=== PATIENT | male | born 1935 | race Caucasian/White ===

== ENCOUNTER 2021-09-07 21:22 | Inpatient (IN) | payer MEDICARE ==
[2021-09-07] MEDS ORDERED: Apixaban 2.5 MG TAB PO SCH (23:00)
[2021-09-07] MEDS ORDERED: Docusate Sodium 100 MG/10 ML UDCUP PO SCH (23:00)
[2021-09-07] MEDS ORDERED: Finasteride 5 MG TAB PO SCH (23:15)
[2021-09-08 01:39] LABS: SARS-CoV-2 NAA Rapid Test Not Detected (NotDetected)
[2021-09-08] MEDS: Levothyroxine Sodium 75 MCG TAB PO SCH (05:53)
[2021-09-08 06:29] LABS: ALT (SGPT) 12 U/L (8-55); AST (SGOT) 19 U/L (5-34); Alkaline Phosphatase 107 U/L (40-110); Anion Gap 11 mmol/L (10-20); BUN (Urea Nitrogen) 9 mg/dL (8.4-25.7); Bilirubin, Total 0.9 mg/dL (0.2-1.2); Calc. Creatinine Clearance 72 mL/min (70-130); Calcium 9.3 mg/dL (7.8-10.44); Carbon Dioxide 26 mmol/L (23-31); Chloride 96 mmol/L (98-107); Globulin 2.7 g/dL (2.4-3.5); Glucose 87 mg/dL (83-110); Potassium 3.9 mmol/L (3.5-5.1); Protein, Total 5.7 g/dL (5.8-8.1); Sodium 129 mmol/L (136-145)
[2021-09-08] MEDS ORDERED: Promethazine HCl 25 MG SUPP PR PRN (07:03)
[2021-09-08] MEDS ORDERED: Artificial Tear Sol 15 ML BOT EA EYE PRN (07:03)
[2021-09-08] MEDS ORDERED: Acetaminophen 650 MG Suppository PR PRN (07:03)
[2021-09-08] MEDS ORDERED: Loperamide HCl 2 MG CAP PO PRN ×2 (07:03)
[2021-09-08] MEDS ORDERED: Acetaminophen 325 MG TAB PO PRN (07:03)
[2021-09-08] MEDS ORDERED: cloNIDine 0.1 MG TAB PO PRN (07:03)
[2021-09-08] MEDS ORDERED: Cepastat Lozenges 1 LOZ PO PRN (07:03)
[2021-09-08] MEDS ORDERED: Calcium Carbonate 500 MG ChewTAB PO PRN (07:03)
[2021-09-08 08:04] LABS: Hemoglobin 10.9 g/dL (14.0-18.0); Mean Corpuscular HGB CONC 31.9 g/dL (32.0-36.0); Mean Corpuscular Volume 84.9 fL (78.0-98.0); Mean Platelet Volume 8.8 fL (7.4-10.4); Platelet Count 110 thou/uL (130-400); RBC Distribution Width 17.6 % (11.5-14.5); Red Blood Cell (RBC) Count 4.02 mill/uL (4.70-6.10); White Blood Cell (WBC) Count 28.7 thou/uL (4.8-10.8)
[2021-09-08 08:06] LABS: Anisocytosis SLIGHT = 6-15 cells (100X) (0-5/hpf); Band 8 % (5-11); Hypochromia SLIGHT = 6-15 cells (100X) (0-5/hpf); Lymphocytes 9 % (21-51); MDiff Complete? YES; Monocytes 4 % (0-10); Neutrophil 79 % (42-75); Platelet Morphology Comment Appears Decreased
[2021-09-08] MEDS ORDERED: Finasteride 5 MG TAB PO SCH (09:00)
[2021-09-08] MEDS ORDERED: Digoxin 0.125 MG TAB PO SCH (09:00)
[2021-09-08] MEDS: Ascorbic Acid 500 mg Chewable Tablet PO SCH (09:31)
[2021-09-08] MEDS: Famotidine 20 MG TAB PO SCH (09:32)
[2021-09-08] MEDS: Cholecalciferol 1,000 UNITS (25 MCG) TAB PO SCH (09:32)
[2021-09-08] MEDS: Hydroxyurea 500 MG CAP PO SCH (09:32)
[2021-09-08] MEDS: Apixaban 2.5 MG TAB PO SCH ×2 (09:32→21:51)
[2021-09-08] MEDS: Loratadine 10 MG TAB PO SCH (09:32)
[2021-09-08] MEDS: Docusate Sodium 100 MG/10 ML UDCUP PO SCH ×2 (09:35→21:50)
[2021-09-08] MEDS: Famotidine/PF 20 mg/2ml Vial SLOW IVP SCH ×2 (09:42→23:11)
[2021-09-08] MEDS: Digoxin 0.125 MG TAB PO SCH (17:16)
[2021-09-08] MEDS: Finasteride 5 MG TAB PO SCH (21:51)
[2021-09-09] MEDS: Levothyroxine Sodium 75 MCG TAB PO SCH (05:37)
[2021-09-09 06:37] LABS: Anion Gap 11 mmol/L (10-20); BUN (Urea Nitrogen) 8 mg/dL (8.4-25.7); Calc. Creatinine Clearance 79 mL/min (70-130); Calcium 9.5 mg/dL (7.8-10.44); Carbon Dioxide 26 mmol/L (23-31); Chloride 101 mmol/L (98-107); Glucose 86 mg/dL (83-110); Potassium 3.8 mmol/L (3.5-5.1); Sodium 134 mmol/L (136-145)
[2021-09-09 06:39] LABS: Platelet Count 111 thou/uL (130-400)
[2021-09-09] MEDS: Docusate Sodium 100 MG/10 ML UDCUP PO SCH ×2 (08:45→21:40)
[2021-09-09] MEDS: Cholecalciferol 1,000 UNITS (25 MCG) TAB PO SCH (08:46)
[2021-09-09] MEDS: Ascorbic Acid 500 mg Chewable Tablet PO SCH (08:46)
[2021-09-09] MEDS: Famotidine 20 MG TAB PO SCH (08:46)
[2021-09-09] MEDS: Loratadine 10 MG TAB PO SCH (08:47)
[2021-09-09] MEDS: Apixaban 2.5 MG TAB PO SCH ×2 (08:47→21:41)
[2021-09-09] MEDS: Guaifenesin DM 100-10/5 ML UDCUP PO PRN ×2 (15:13→21:48)
[2021-09-09] MEDS: Digoxin 0.125 MG TAB PO SCH (17:20)
[2021-09-09] MEDS: Finasteride 5 MG TAB PO SCH (21:40)
[2021-09-10] MEDS: Levothyroxine Sodium 75 MCG TAB PO SCH (05:58)
[2021-09-10 06:31] LABS: Anion Gap 12 mmol/L (10-20); BUN (Urea Nitrogen) 8 mg/dL (8.4-25.7); Calc. Creatinine Clearance 80 mL/min (70-130); Calcium 9.4 mg/dL (7.8-10.44); Carbon Dioxide 25 mmol/L (23-31); Chloride 100 mmol/L (98-107); Glucose 91 mg/dL (83-110); Sodium 133 mmol/L (136-145)
[2021-09-10] MEDS: Docusate Sodium 100 MG/10 ML UDCUP PO SCH ×2 (08:04→20:17)
[2021-09-10] MEDS: Loratadine 10 MG TAB PO SCH (08:05)
[2021-09-10] MEDS: Famotidine 20 MG TAB PO SCH (08:05)
[2021-09-10] MEDS: Cholecalciferol 1,000 UNITS (25 MCG) TAB PO SCH (08:05)
[2021-09-10] MEDS: Apixaban 2.5 MG TAB PO SCH ×2 (08:05→20:17)
[2021-09-10] MEDS: Ascorbic Acid 500 mg Chewable Tablet PO SCH (08:05)
[2021-09-10] MEDS: Digoxin 0.125 MG TAB PO SCH (17:19)
[2021-09-10] MEDS: Finasteride 5 MG TAB PO SCH (20:16)
[2021-09-11 06:01] LABS: Anion Gap 12 mmol/L (10-20); BUN (Urea Nitrogen) 8 mg/dL (8.4-25.7); Calc. Creatinine Clearance 82 mL/min (70-130); Calcium 9.3 mg/dL (7.8-10.44); Carbon Dioxide 24 mmol/L (23-31); Chloride 97 mmol/L (98-107); Glucose 93 mg/dL (83-110); Potassium 4.1 mmol/L (3.5-5.1); Sodium 129 mmol/L (136-145)
[2021-09-11] MEDS: Levothyroxine Sodium 75 MCG TAB PO SCH (06:32)
[2021-09-11] MEDS: Cholecalciferol 1,000 UNITS (25 MCG) TAB PO SCH (09:32)
[2021-09-11] MEDS: Hydroxyurea 500 MG CAP PO SCH (09:33)
[2021-09-11] MEDS: Docusate Sodium 100 MG/10 ML UDCUP PO SCH ×2 (09:33→21:05)
[2021-09-11] MEDS: Ascorbic Acid 500 mg Chewable Tablet PO SCH (09:33)
[2021-09-11] MEDS: Apixaban 2.5 MG TAB PO SCH ×2 (09:33→21:05)
[2021-09-11] MEDS: Loratadine 10 MG TAB PO SCH (09:33)
[2021-09-11] MEDS: Famotidine 20 MG TAB PO SCH (09:33)
[2021-09-11] MEDS: Digoxin 0.125 MG TAB PO SCH (17:25)
[2021-09-11] MEDS: Finasteride 5 MG TAB PO SCH (21:05)
[2021-09-11] MEDS: Guaifenesin DM 100-10/5 ML UDCUP PO PRN (21:05)
[2021-09-12] MEDS: Levothyroxine Sodium 75 MCG TAB PO SCH (06:11)
[2021-09-12 06:34] LABS: Hemoglobin 10.9 g/dL (14.0-18.0); Platelet Count 97 thou/uL (130-400)
[2021-09-12] MEDS: Ascorbic Acid 500 mg Chewable Tablet PO SCH (09:09)
[2021-09-12] MEDS: Cholecalciferol 1,000 UNITS (25 MCG) TAB PO SCH (09:09)
[2021-09-12] MEDS: Docusate Sodium 100 MG/10 ML UDCUP PO SCH ×2 (09:09→21:43)
[2021-09-12] MEDS: Loratadine 10 MG TAB PO SCH (09:09)
[2021-09-12] MEDS: Famotidine 20 MG TAB PO SCH (09:09)
[2021-09-12] MEDS: Apixaban 2.5 MG TAB PO SCH ×2 (09:09→21:43)
[2021-09-12] MEDS: Digoxin 0.125 MG TAB PO SCH (17:31)
[2021-09-12] MEDS: Finasteride 5 MG TAB PO SCH (21:43)
[2021-09-13] MEDS: Senokot S 8.6-50 MG TAB PO PRN (06:05)
[2021-09-13] MEDS: Levothyroxine Sodium 75 MCG TAB PO SCH (06:05)
[2021-09-13 06:51] LABS: Anion Gap 12 mmol/L (10-20); BUN (Urea Nitrogen) 9 mg/dL (8.4-25.7); Calc. Creatinine Clearance 76 mL/min (70-130); Calcium 9.4 mg/dL (7.8-10.44); Carbon Dioxide 26 mmol/L (23-31); Chloride 93 mmol/L (98-107); Glucose 90 mg/dL (83-110); Sodium 127 mmol/L (136-145)
[2021-09-13 07:19] LABS: #Basophils 0.7 thou/uL (0.0-0.2); #Eosinphils 0.7 thou/uL (0.0-0.7); #Lymphocytes 0.9 thou/uL (1.20-3.40); #Monocytes 1.5 thou/uL (0.11-0.59); #Neutrophils 20.3 thou/uL (1.40-6.50); %Basophils 3.1 % (0.0-1.0); %Lymphocytes 3.6 % (21.0-51.0); %Monocytes 6.2 % (0.0-10.0); %Neutrophils 84.1 % (42.0-75.0); Hemoglobin 10.8 g/dL (14.0-18.0); Mean Corpuscular HGB CONC 30.6 g/dL (32.0-36.0); Mean Corpuscular Hemoglobin 26.5 pg (27.0-31.0); Mean Corpuscular Volume 86.9 fL (78.0-98.0); Mean Platelet Volume 7.7 fL (7.4-10.4); Platelet Count 98 thou/uL (130-400); Red Blood Cell (RBC) Count 4.08 mill/uL (4.70-6.10); White Blood Cell (WBC) Count 24.1 thou/uL (4.8-10.8)
[2021-09-13] MEDS: Famotidine 20 MG TAB PO SCH (08:27)
[2021-09-13] MEDS: Cholecalciferol 1,000 UNITS (25 MCG) TAB PO SCH (08:27)
[2021-09-13] MEDS: Apixaban 2.5 MG TAB PO SCH ×2 (08:27→21:28)
[2021-09-13] MEDS: Loratadine 10 MG TAB PO SCH (08:27)
[2021-09-13] MEDS: Ascorbic Acid 500 mg Chewable Tablet PO SCH (08:27)
[2021-09-13] MEDS: Docusate Sodium 100 MG/10 ML UDCUP PO SCH ×2 (08:28→21:28)
[2021-09-13] MEDS: Hydroxyurea 500 MG CAP PO SCH (08:28)
[2021-09-13] MEDS: Digoxin 0.125 MG TAB PO SCH (17:43)
[2021-09-13] MEDS: Finasteride 5 MG TAB PO SCH (21:28)
[2021-09-14] MEDS: Levothyroxine Sodium 75 MCG TAB PO SCH (05:18)
[2021-09-14 07:33] LABS: Anion Gap 13 mmol/L (10-20); BUN (Urea Nitrogen) 8 mg/dL (8.4-25.7); Calc. Creatinine Clearance 67 mL/min (70-130); Calcium 9.9 mg/dL (7.8-10.44); Carbon Dioxide 26 mmol/L (23-31); Chloride 95 mmol/L (98-107); Glucose 86 mg/dL (83-110); Potassium 4.3 mmol/L (3.5-5.1); Sodium 130 mmol/L (136-145)
[2021-09-14 08:03] LABS: Thyroid Stimulating Hormone 2.2223 uIU/mL (0.35-4.94)
[2021-09-14] MEDS: Ascorbic Acid 500 mg Chewable Tablet PO SCH (08:24)
[2021-09-14] MEDS: Docusate Sodium 100 MG/10 ML UDCUP PO SCH ×3 (08:24→21:06)
[2021-09-14] MEDS: Sodium Chloride 1 GM TAB PO SCH (08:24)
[2021-09-14] MEDS: Famotidine 20 MG TAB PO SCH (08:24)
[2021-09-14] MEDS: Cholecalciferol 1,000 UNITS (25 MCG) TAB PO SCH (08:24)
[2021-09-14] MEDS: Apixaban 2.5 MG TAB PO SCH ×2 (08:24→21:06)
[2021-09-14] MEDS: Loratadine 10 MG TAB PO SCH (08:24)
[2021-09-14 11:54] LABS: Free T4 (Free Thyroxine) 1.33 ng/dL (0.70-1.48)
[2021-09-14] MEDS: Digoxin 0.125 MG TAB PO SCH (16:40)
[2021-09-14] MEDS: Finasteride 5 MG TAB PO SCH (21:06)
[2021-09-15] MEDS: Levothyroxine Sodium 75 MCG TAB PO SCH (05:26)
[2021-09-15 05:56] LABS: Hemoglobin 10.9 g/dL (14.0-18.0)
[2021-09-15 05:57] LABS: Platelet Count 96 thou/uL (130-400)
[2021-09-15] MEDS: Cholecalciferol 1,000 UNITS (25 MCG) TAB PO SCH (08:28)
[2021-09-15] MEDS: Sodium Chloride 1 GM TAB PO SCH (08:29)
[2021-09-15] MEDS: Apixaban 2.5 MG TAB PO SCH ×2 (08:29→20:23)
[2021-09-15] MEDS: Hydroxyurea 500 MG CAP PO SCH (08:29)
[2021-09-15] MEDS: Docusate Sodium 100 MG/10 ML UDCUP PO SCH ×2 (08:29→20:23)
[2021-09-15] MEDS: Ascorbic Acid 500 mg Chewable Tablet PO SCH (08:29)
[2021-09-15] MEDS: Loratadine 10 MG TAB PO SCH ×2 (08:31→08:32)
[2021-09-15] MEDS: Famotidine 20 MG TAB PO SCH (08:33)
[2021-09-15 16:39] LABS: SARS-CoV-2 PCR by NAA Not Detected (NotDetected)
[2021-09-15] MEDS: Digoxin 0.125 MG TAB PO SCH (17:19)
[2021-09-15] MEDS: Finasteride 5 MG TAB PO SCH (20:12)
[2021-09-15] MEDS: Guaifenesin DM 100-10/5 ML UDCUP PO PRN (20:23)
[2021-09-16] MEDS: Levothyroxine Sodium 75 MCG TAB PO SCH (05:19)
[2021-09-16 07:37] LABS: Anion Gap 11 mmol/L (10-20); BUN (Urea Nitrogen) 7 mg/dL (8.4-25.7); Calc. Creatinine Clearance 85 mL/min (70-130); Calcium 9.3 mg/dL (7.8-10.44); Carbon Dioxide 26 mmol/L (23-31); Chloride 95 mmol/L (98-107); Glucose 89 mg/dL (83-110); Potassium 4.1 mmol/L (3.5-5.1); Sodium 128 mmol/L (136-145)
[2021-09-16] MEDS: Loratadine 10 MG TAB PO SCH (08:31)
[2021-09-16] MEDS: Famotidine 20 MG TAB PO SCH (08:31)
[2021-09-16] MEDS: Ascorbic Acid 500 mg Chewable Tablet PO SCH (08:31)
[2021-09-16] MEDS: Sodium Chloride 1 GM TAB PO SCH (08:31)
[2021-09-16] MEDS: Cholecalciferol 1,000 UNITS (25 MCG) TAB PO SCH (08:31)
[2021-09-16] MEDS: Apixaban 2.5 MG TAB PO SCH ×2 (08:31→20:26)
[2021-09-16] MEDS: Docusate Sodium 100 MG/10 ML UDCUP PO SCH ×2 (08:32→20:26)
[2021-09-16] MEDS: Digoxin 0.125 MG TAB PO SCH (17:30)
[2021-09-16] MEDS: Finasteride 5 MG TAB PO SCH (20:26)
[2021-09-17] MEDS: Levothyroxine Sodium 75 MCG TAB PO SCH (05:08)
[2021-09-17 08:05] LABS: Anion Gap 12 mmol/L (10-20); BUN (Urea Nitrogen) 7 mg/dL (8.4-25.7); Calc. Creatinine Clearance 74 mL/min (70-130); Calcium 9.4 mg/dL (7.8-10.44); Carbon Dioxide 27 mmol/L (23-31); Chloride 95 mmol/L (98-107); Glucose 89 mg/dL (83-110); Potassium 4.1 mmol/L (3.5-5.1); Sodium 130 mmol/L (136-145)
[2021-09-17] MEDS: Ascorbic Acid 500 mg Chewable Tablet PO SCH (09:45)
[2021-09-17] MEDS: Sodium Chloride 1 GM TAB PO SCH (09:45)
[2021-09-17] MEDS: Apixaban 2.5 MG TAB PO SCH ×2 (09:45→21:16)
[2021-09-17] MEDS: Famotidine 20 MG TAB PO SCH (09:46)
[2021-09-17] MEDS: Cholecalciferol 1,000 UNITS (25 MCG) TAB PO SCH (09:53)
[2021-09-17] MEDS: Docusate Sodium 100 MG/10 ML UDCUP PO SCH ×2 (09:55→21:16)
[2021-09-17] MEDS ORDERED: Loratadine 10 MG TAB PO SCH (10:00)
[2021-09-17] MEDS: Digoxin 0.125 MG TAB PO SCH (17:40)
[2021-09-17] MEDS: Finasteride 5 MG TAB PO SCH (21:16)
[2021-09-18] MEDS: Levothyroxine Sodium 75 MCG TAB PO SCH (05:11)
[2021-09-18 06:25] LABS: Hemoglobin 11.8 g/dL (14.0-18.0); Platelet Count 98 thou/uL (130-400)
[2021-09-18] MEDS: Ascorbic Acid 500 mg Chewable Tablet PO SCH (08:37)
[2021-09-18] MEDS: Sodium Chloride 1 GM TAB PO SCH (08:38)
[2021-09-18] MEDS: Hydroxyurea 500 MG CAP PO SCH (08:38)
[2021-09-18] MEDS: Cholecalciferol 1,000 UNITS (25 MCG) TAB PO SCH (08:38)
[2021-09-18] MEDS: Docusate Sodium 100 MG/10 ML UDCUP PO SCH ×2 (08:38→20:14)
[2021-09-18] MEDS: Apixaban 2.5 MG TAB PO SCH ×2 (08:38→20:13)
[2021-09-18] MEDS: Famotidine 20 MG TAB PO SCH (08:38)
[2021-09-18] MEDS: Loratadine 10 MG TAB PO SCH (08:38)
[2021-09-18 11:23] LABS: Cardiac Risk 2.8 (Less than 4.5); Cholesterol 93 mg/dl (< 200 Desired); HDL Cholesterol 33 mg/dL (>60 Neg Risk); LDL Cholesterol, Calculated 48 mg/dL; Triglycerides 61 mg/dL (Less than 150)
[2021-09-18] MEDS: Digoxin 0.125 MG TAB PO SCH (17:29)
[2021-09-18] MEDS: Finasteride 5 MG TAB PO SCH (20:14)
[2021-09-19] MEDS: Levothyroxine Sodium 75 MCG TAB PO SCH (05:24)
[2021-09-19 06:24] LABS: Anion Gap 11 mmol/L (10-20); BUN (Urea Nitrogen) 8 mg/dL (8.4-25.7); Calc. Creatinine Clearance 70 mL/min (70-130); Calcium 9.4 mg/dL (7.8-10.44); Carbon Dioxide 27 mmol/L (23-31); Chloride 97 mmol/L (98-107); Glucose 88 mg/dL (83-110); Sodium 131 mmol/L (136-145)
[2021-09-19] MEDS: Ascorbic Acid 500 mg Chewable Tablet PO SCH (08:44)
[2021-09-19] MEDS: Docusate Sodium 100 MG/10 ML UDCUP PO SCH ×2 (08:45→20:43)
[2021-09-19] MEDS: Cholecalciferol 1,000 UNITS (25 MCG) TAB PO SCH (08:45)
[2021-09-19] MEDS: Bisacodyl 5 MG TAB PO PRN (08:46)
[2021-09-19] MEDS: Loratadine 10 MG TAB PO SCH (08:46)
[2021-09-19] MEDS: Famotidine 20 MG TAB PO SCH (08:46)
[2021-09-19] MEDS: Sodium Chloride 1 GM TAB PO SCH (08:46)
[2021-09-19] MEDS: Apixaban 2.5 MG TAB PO SCH ×2 (08:55→20:43)
[2021-09-19] MEDS: Senokot S 8.6-50 MG TAB PO PRN (15:19)
[2021-09-19] MEDS: Digoxin 0.125 MG TAB PO SCH (17:12)
[2021-09-19] MEDS: Bisacodyl 10 MG SUPP PR PRN (17:58)
[2021-09-19] MEDS: Finasteride 5 MG TAB PO SCH (20:43)
[2021-09-20] MEDS: Levothyroxine Sodium 75 MCG TAB PO SCH (05:27)
[2021-09-20] MEDS: Docusate Sodium 100 MG/10 ML UDCUP PO SCH ×2 (08:15→20:53)
[2021-09-20] MEDS: Ascorbic Acid 500 mg Chewable Tablet PO SCH (08:16)
[2021-09-20] MEDS: Cholecalciferol 1,000 UNITS (25 MCG) TAB PO SCH (08:16)
[2021-09-20] MEDS: Sodium Chloride 1 GM TAB PO SCH (08:16)
[2021-09-20] MEDS: Famotidine 20 MG TAB PO SCH (08:16)
[2021-09-20] MEDS: Apixaban 2.5 MG TAB PO SCH ×2 (08:16→20:53)
[2021-09-20] MEDS: Hydroxyurea 500 MG CAP PO SCH (08:16)
[2021-09-20] MEDS: Loratadine 10 MG TAB PO SCH (08:16)
[2021-09-20] MEDS: Digoxin 0.125 MG TAB PO SCH (17:28)
[2021-09-20] MEDS: Finasteride 5 MG TAB PO SCH (20:53)
[2021-09-21] MEDS: Levothyroxine Sodium 75 MCG TAB PO SCH (05:20)
[2021-09-21 06:42] LABS: Anion Gap 11 mmol/L (10-20); BUN (Urea Nitrogen) 15 mg/dL (8.4-25.7); Calc. Creatinine Clearance 74 mL/min (70-130); Calcium 9.9 mg/dL (7.8-10.44); Carbon Dioxide 29 mmol/L (23-31); Chloride 97 mmol/L (98-107); Glucose 88 mg/dL (83-110); Potassium 4.1 mmol/L (3.5-5.1); Sodium 133 mmol/L (136-145)
[2021-09-21] MEDS: Famotidine 20 MG TAB PO SCH (08:35)
[2021-09-21] MEDS: Loratadine 10 MG TAB PO SCH (08:35)
[2021-09-21] MEDS: Sodium Chloride 1 GM TAB PO SCH (08:35)
[2021-09-21] MEDS: Apixaban 2.5 MG TAB PO SCH ×2 (08:35→21:28)
[2021-09-21] MEDS: Docusate Sodium 100 MG/10 ML UDCUP PO SCH ×2 (08:35→21:28)
[2021-09-21] MEDS: Cholecalciferol 1,000 UNITS (25 MCG) TAB PO SCH (08:35)
[2021-09-21] MEDS: Ascorbic Acid 500 mg Chewable Tablet PO SCH (08:35)
[2021-09-21] MEDS: Sodium Chloride 0.65% Nasal 44 ML BOT EA NARE PRN (15:19)
[2021-09-21] MEDS: Digoxin 0.125 MG TAB PO SCH (17:14)
[2021-09-21] MEDS: Finasteride 5 MG TAB PO SCH (21:28)
[2021-09-22] MEDS: Levothyroxine Sodium 75 MCG TAB PO SCH (06:01)
[2021-09-22] MEDS: Famotidine 20 MG TAB PO SCH (08:39)
[2021-09-22] MEDS: Docusate Sodium 100 MG/10 ML UDCUP PO SCH ×2 (08:40→20:38)
[2021-09-22] MEDS: Ascorbic Acid 500 mg Chewable Tablet PO SCH (08:41)
[2021-09-22] MEDS: Cholecalciferol 1,000 UNITS (25 MCG) TAB PO SCH (08:41)
[2021-09-22] MEDS: Hydroxyurea 500 MG CAP PO SCH (08:41)
[2021-09-22] MEDS: Loratadine 10 MG TAB PO SCH (08:41)
[2021-09-22] MEDS: Sodium Chloride 1 GM TAB PO SCH (08:41)
[2021-09-22] MEDS: Apixaban 2.5 MG TAB PO SCH ×2 (08:41→20:38)
[2021-09-22] MEDS: Sodium Chloride 0.65% Nasal 44 ML BOT EA NARE PRN (10:42)
[2021-09-22] MEDS: Digoxin 0.125 MG TAB PO SCH (17:36)
[2021-09-22] MEDS: Finasteride 5 MG TAB PO SCH (20:38)
[2021-09-23] MEDS: Levothyroxine Sodium 75 MCG TAB PO SCH (05:40)
[2021-09-23 07:04] LABS: Anion Gap 13 mmol/L (10-20); BUN (Urea Nitrogen) 8 mg/dL (8.4-25.7); Calc. Creatinine Clearance 78 mL/min (70-130); Calcium 9.7 mg/dL (7.8-10.44); Carbon Dioxide 25 mmol/L (23-31); Chloride 97 mmol/L (98-107); Glucose 90 mg/dL (83-110); Sodium 131 mmol/L (136-145)
[2021-09-23] MEDS: Docusate Sodium 100 MG/10 ML UDCUP PO SCH ×2 (08:01→21:09)
[2021-09-23] MEDS: Apixaban 2.5 MG TAB PO SCH ×2 (08:02→21:08)
[2021-09-23] MEDS: Famotidine 20 MG TAB PO SCH (08:02)
[2021-09-23] MEDS: Loratadine 10 MG TAB PO SCH (08:02)
[2021-09-23] MEDS: Sodium Chloride 1 GM TAB PO SCH (08:03)
[2021-09-23] MEDS: Cholecalciferol 1,000 UNITS (25 MCG) TAB PO SCH (08:03)
[2021-09-23] MEDS: Ascorbic Acid 500 mg Chewable Tablet PO SCH (08:03)
[2021-09-23] MEDS: Sodium Chloride 0.65% Nasal 44 ML BOT EA NARE PRN (15:34)
[2021-09-23] MEDS: Digoxin 0.125 MG TAB PO SCH (17:26)
[2021-09-23] MEDS: Finasteride 5 MG TAB PO SCH (21:08)
[2021-09-24] MEDS: Levothyroxine Sodium 75 MCG TAB PO SCH (05:50)
[2021-09-24 06:34] LABS: Digoxin 0.42 ng/mL (0.8-2.0)
[2021-09-24] MEDS: Docusate Sodium 100 MG/10 ML UDCUP PO SCH ×2 (08:22→20:11)
[2021-09-24] MEDS: Ascorbic Acid 500 mg Chewable Tablet PO SCH (08:22)
[2021-09-24] MEDS: Apixaban 2.5 MG TAB PO SCH ×2 (08:23→20:11)
[2021-09-24] MEDS: Loratadine 10 MG TAB PO SCH (08:23)
[2021-09-24] MEDS: Famotidine 20 MG TAB PO SCH (08:23)
[2021-09-24] MEDS: Sodium Chloride 1 GM TAB PO SCH (08:23)
[2021-09-24] MEDS: Cholecalciferol 1,000 UNITS (25 MCG) TAB PO SCH (08:23)
[2021-09-24] MEDS: Digoxin 0.125 MG TAB PO SCH (17:04)
[2021-09-24] MEDS: Finasteride 5 MG TAB PO SCH (20:11)
[2021-09-24 21:14] LABS: SARS-CoV-2 PCR by NAA Not Detected (NotDetected)
[2021-09-25] MEDS: Levothyroxine Sodium 75 MCG TAB PO SCH (05:28)
[2021-09-25 06:38] LABS: Anion Gap 10 mmol/L (10-20); BUN (Urea Nitrogen) 10 mg/dL (8.4-25.7); Calc. Creatinine Clearance 70 mL/min (70-130); Calcium 9.6 mg/dL (7.8-10.44); Carbon Dioxide 30 mmol/L (23-31); Chloride 98 mmol/L (98-107); Glucose 90 mg/dL (83-110); Potassium 4.1 mmol/L (3.5-5.1); Sodium 134 mmol/L (136-145)
[2021-09-25 07:22] LABS: Hemoglobin 10.6 g/dL (14.0-18.0); Platelet Count 74 thou/uL (130-400)
[2021-09-25] MEDS: Cholecalciferol 1,000 UNITS (25 MCG) TAB PO SCH (08:23)
[2021-09-25] MEDS: Sodium Chloride 1 GM TAB PO SCH (08:23)
[2021-09-25] MEDS: Ascorbic Acid 500 mg Chewable Tablet PO SCH (08:23)
[2021-09-25] MEDS: Docusate Sodium 100 MG/10 ML UDCUP PO SCH ×2 (08:23→20:37)
[2021-09-25] MEDS: Hydroxyurea 500 MG CAP PO SCH (08:24)
[2021-09-25] MEDS: Loratadine 10 MG TAB PO SCH (08:24)
[2021-09-25] MEDS: Apixaban 2.5 MG TAB PO SCH ×2 (08:24→20:37)
[2021-09-25] MEDS: Famotidine 20 MG TAB PO SCH (08:24)
[2021-09-25] MEDS: Digoxin 0.125 MG TAB PO SCH (17:37)
[2021-09-25] MEDS: Finasteride 5 MG TAB PO SCH (20:37)
[2021-09-26] MEDS: Levothyroxine Sodium 75 MCG TAB PO SCH (05:47)
[2021-09-26] MEDS: Docusate Sodium 100 MG/10 ML UDCUP PO SCH ×2 (07:53→20:33)
[2021-09-26] MEDS: Cholecalciferol 1,000 UNITS (25 MCG) TAB PO SCH (07:57)
[2021-09-26] MEDS: Famotidine 20 MG TAB PO SCH (07:57)
[2021-09-26] MEDS: Ascorbic Acid 500 mg Chewable Tablet PO SCH (07:57)
[2021-09-26] MEDS: Loratadine 10 MG TAB PO SCH (07:57)
[2021-09-26] MEDS: Sodium Chloride 1 GM TAB PO SCH (07:58)
[2021-09-26] MEDS: Apixaban 2.5 MG TAB PO SCH ×2 (07:58→20:33)
[2021-09-26] MEDS: Digoxin 0.125 MG TAB PO SCH (16:45)
[2021-09-26] MEDS: Finasteride 5 MG TAB PO SCH (20:33)
[2021-09-27] MEDS: Levothyroxine Sodium 75 MCG TAB PO SCH (06:14)
[2021-09-27 06:16] LABS: Anion Gap 11 mmol/L (10-20); BUN (Urea Nitrogen) 11 mg/dL (8.4-25.7); Calc. Creatinine Clearance 70 mL/min (70-130); Calcium 9.9 mg/dL (7.8-10.44); Carbon Dioxide 28 mmol/L (23-31); Chloride 100 mmol/L (98-107); Glucose 92 mg/dL (83-110); Potassium 4.2 mmol/L (3.5-5.1)
[2021-09-27 06:42] LABS: Sodium 135 mmol/L (136-145)
[2021-09-27] MEDS: Docusate Sodium 100 MG/10 ML UDCUP PO SCH ×2 (08:18→20:30)
[2021-09-27] MEDS: Sodium Chloride 1 GM TAB PO SCH (08:21)
[2021-09-27] MEDS: Famotidine 20 MG TAB PO SCH (08:21)
[2021-09-27] MEDS: Hydroxyurea 500 MG CAP PO SCH (08:21)
[2021-09-27] MEDS: Ascorbic Acid 500 mg Chewable Tablet PO SCH (08:21)
[2021-09-27] MEDS: Apixaban 2.5 MG TAB PO SCH ×2 (08:21→20:32)
[2021-09-27] MEDS: Cholecalciferol 1,000 UNITS (25 MCG) TAB PO SCH (08:21)
[2021-09-27] MEDS: Digoxin 0.125 MG TAB PO SCH (17:05)
[2021-09-27] MEDS: Finasteride 5 MG TAB PO SCH (20:30)
[2021-09-28] MEDS: Levothyroxine Sodium 75 MCG TAB PO SCH (06:00)
[2021-09-28] MEDS: Cholecalciferol 1,000 UNITS (25 MCG) TAB PO SCH (08:07)
[2021-09-28] MEDS: Famotidine 20 MG TAB PO SCH (08:08)
[2021-09-28] MEDS: Sodium Chloride 1 GM TAB PO SCH (08:08)
[2021-09-28] MEDS: Docusate Sodium 100 MG/10 ML UDCUP PO SCH ×2 (08:08→20:03)
[2021-09-28] MEDS: Ascorbic Acid 500 mg Chewable Tablet PO SCH (08:08)
[2021-09-28] MEDS: Apixaban 2.5 MG TAB PO SCH ×2 (08:08→20:03)
[2021-09-28 13:10] LABS: #Basophils 0.5 thou/uL (0.0-0.2); #Lymphocytes 1.3 thou/uL (1.20-3.40); #Monocytes 0.8 thou/uL (0.11-0.59); #Neutrophils 18.9 thou/uL (1.40-6.50); %Basophils 2.3 % (0.0-1.0); %Eosinophils 4.6 % (0.0-10.0); %Lymphocytes 5.9 % (21.0-51.0); %Monocytes 3.6 % (0.0-10.0); %Neutrophils 83.6 % (42.0-75.0); Hemoglobin 11.6 g/dL (14.0-18.0); Mean Corpuscular HGB CONC 29.6 g/dL (32.0-36.0); Mean Corpuscular Hemoglobin 26.6 pg (27.0-31.0); Mean Corpuscular Volume 89.9 fL (78.0-98.0); Mean Platelet Volume 8.1 fL (7.4-10.4); Platelet Count 88 thou/uL (130-400); RBC Distribution Width 18.9 % (11.5-14.5); Red Blood Cell (RBC) Count 4.36 mill/uL (4.70-6.10); White Blood Cell (WBC) Count 22.6 thou/uL (4.8-10.8)
[2021-09-28 13:20] LABS: Anion Gap 11 mmol/L (10-20); BUN (Urea Nitrogen) 9 mg/dL (8.4-25.7); Calc. Creatinine Clearance 70 mL/min (70-130); Calcium 9.7 mg/dL (7.8-10.44); Carbon Dioxide 26 mmol/L (23-31); Chloride 100 mmol/L (98-107); Glucose 155 mg/dL (83-110); Potassium 4.2 mmol/L (3.5-5.1); Sodium 133 mmol/L (136-145)
[2021-09-28] MEDS: Digoxin 0.125 MG TAB PO SCH (17:04)
[2021-09-28] MEDS: Finasteride 5 MG TAB PO SCH (20:03)
[2021-09-29] MEDS: Levothyroxine Sodium 75 MCG TAB PO SCH (05:34)
[2021-09-29] MEDS: Docusate Sodium 100 MG/10 ML UDCUP PO SCH ×2 (08:17→20:18)
[2021-09-29] MEDS: Sodium Chloride 1 GM TAB PO SCH (08:17)
[2021-09-29] MEDS: Cholecalciferol 1,000 UNITS (25 MCG) TAB PO SCH (08:17)
[2021-09-29] MEDS: Ascorbic Acid 500 mg Chewable Tablet PO SCH (08:17)
[2021-09-29] MEDS: Loratadine 10 MG TAB PO SCH (08:17)
[2021-09-29] MEDS: Apixaban 2.5 MG TAB PO SCH ×2 (08:17→20:19)
[2021-09-29] MEDS: Famotidine 20 MG TAB PO SCH (08:17)
[2021-09-29] MEDS: Digoxin 0.125 MG TAB PO SCH (16:59)
[2021-09-29] MEDS: Senokot S 8.6-50 MG TAB PO PRN (17:00)
[2021-09-29] MEDS: Finasteride 5 MG TAB PO SCH (20:19)
[2021-09-30] MEDS: Levothyroxine Sodium 75 MCG TAB PO SCH (04:52)
[2021-09-30 06:57] LABS: Hemoglobin 11.7 g/dL (14.0-18.0); Mean Corpuscular HGB CONC 30.3 g/dL (32.0-36.0); Mean Corpuscular Hemoglobin 26.7 pg (27.0-31.0); Mean Corpuscular Volume 88.3 fL (78.0-98.0); Mean Platelet Volume 8.4 fL (7.4-10.4); Platelet Count 81 thou/uL (130-400); RBC Distribution Width 18.9 % (11.5-14.5); Red Blood Cell (RBC) Count 4.37 mill/uL (4.70-6.10); White Blood Cell (WBC) Count 19.8 thou/uL (4.8-10.8)
[2021-09-30 06:58] LABS: #Basophils 0.5 thou/uL (0.0-0.2); #Eosinphils 0.8 thou/uL (0.0-0.7); #Lymphocytes 1.2 thou/uL (1.20-3.40); #Neutrophils 16.3 thou/uL (1.40-6.50); %Basophils 2.7 % (0.0-1.0); %Eosinophils 4.1 % (0.0-10.0); %Lymphocytes 6.3 % (21.0-51.0); %Neutrophils 81.9 % (42.0-75.0)
[2021-09-30 06:59] LABS: Anion Gap 11 mmol/L (10-20); BUN (Urea Nitrogen) 10 mg/dL (8.4-25.7); Calc. Creatinine Clearance 64 mL/min (70-130); Calcium 9.7 mg/dL (7.8-10.44); Carbon Dioxide 29 mmol/L (23-31); Chloride 100 mmol/L (98-107); Glucose 89 mg/dL (83-110); Potassium 4.1 mmol/L (3.5-5.1); Sodium 136 mmol/L (136-145)
[2021-09-30] MEDS: Cholecalciferol 1,000 UNITS (25 MCG) TAB PO SCH (08:15)
[2021-09-30] MEDS: Ascorbic Acid 500 mg Chewable Tablet PO SCH (08:15)
[2021-09-30] MEDS: Famotidine 20 MG TAB PO SCH (08:15)
[2021-09-30] MEDS: Loratadine 10 MG TAB PO SCH (08:16)
[2021-09-30] MEDS: Docusate Sodium 100 MG/10 ML UDCUP PO SCH ×2 (08:16→20:17)
[2021-09-30] MEDS: Apixaban 2.5 MG TAB PO SCH ×2 (08:16→20:17)
[2021-09-30] MEDS: Sodium Chloride 1 GM TAB PO SCH (08:16)
[2021-09-30 17:17] LABS: Anisocytosis SLIGHT = 6-15 cells (100X) (0-5/hpf); Elliptocytes SLIGHT = 2-5 cells (100X) (0-1/hpf); Hypochromia SLIGHT = 6-15 cells (100X) (0-5/hpf); Ovalocytes SLIGHT = 2-5 cells (100X) (0-1/hpf)
[2021-09-30 17:18] LABS: Basophilic Stippling SLIGHT = 1-2 cells (100X) (None Seen); Polychromasia MODERATE = 3-4 cells (100X) (0-2/hpf)
[2021-09-30 17:19] LABS: Large Platelets SLIGHT; Platelet Morphology Comment Appears Decreased
[2021-09-30] MEDS: Digoxin 0.125 MG TAB PO SCH (17:46)
[2021-09-30] MEDS: Finasteride 5 MG TAB PO SCH (20:17)
[2021-10-01] MEDS: Levothyroxine Sodium 75 MCG TAB PO SCH (05:23)
[2021-10-01] MEDS: Loratadine 10 MG TAB PO SCH (08:36)
[2021-10-01] MEDS: Famotidine 20 MG TAB PO SCH (08:36)
[2021-10-01] MEDS: Ascorbic Acid 500 mg Chewable Tablet PO SCH (08:36)
[2021-10-01] MEDS: Apixaban 2.5 MG TAB PO SCH ×2 (08:36→20:00)
[2021-10-01] MEDS: Sodium Chloride 1 GM TAB PO SCH (08:36)
[2021-10-01] MEDS: Cholecalciferol 1,000 UNITS (25 MCG) TAB PO SCH (08:36)
[2021-10-01] MEDS: Docusate Sodium 100 MG/10 ML UDCUP PO SCH ×2 (08:37→20:00)
[2021-10-01] MEDS: Digoxin 0.125 MG TAB PO SCH (17:08)
[2021-10-01] MEDS: Finasteride 5 MG TAB PO SCH (20:00)
[2021-10-02] MEDS: Levothyroxine Sodium 75 MCG TAB PO SCH (05:16)
[2021-10-02 06:35] LABS: Mean Corpuscular HGB CONC 29.7 g/dL (32.0-36.0); Mean Corpuscular Hemoglobin 26.7 pg (27.0-31.0); Platelet Count 78 thou/uL (130-400); RBC Distribution Width 19.4 % (11.5-14.5)
[2021-10-02 06:36] LABS: #Eosinphils 0.8 thou/uL (0.0-0.7); #Lymphocytes 1.3 thou/uL (1.20-3.40); #Monocytes 0.8 thou/uL (0.11-0.59); #Neutrophils 15.8 thou/uL (1.40-6.50); %Basophils 1.8 % (0.0-1.0); %Eosinophils 4.1 % (0.0-10.0); %Monocytes 4.4 % (0.0-10.0); %Neutrophils 82.8 % (42.0-75.0); Manual Diff?? NO; Mean Platelet Volume 7.3 fL (7.4-10.4)
[2021-10-02 06:37] LABS: #Basophils 0.3 thou/uL (0.0-0.2)
[2021-10-02 06:51] LABS: Sodium 140 mmol/L (136-145)
[2021-10-02 06:56] LABS: Anion Gap 13 mmol/L (10-20); BUN (Urea Nitrogen) 13 mg/dL (8.4-25.7); Calc. Creatinine Clearance 67 mL/min (70-130); Calcium 9.5 mg/dL (7.8-10.44); Chloride 103 mmol/L (98-107); Glucose 87 mg/dL (83-110)
[2021-10-02 07:04] LABS: Carbon Dioxide 28 mmol/L (23-31)
[2021-10-02] MEDS: Apixaban 2.5 MG TAB PO SCH ×2 (08:05→20:00)
[2021-10-02] MEDS: Famotidine 20 MG TAB PO SCH (08:05)
[2021-10-02] MEDS: Sodium Chloride 1 GM TAB PO SCH (08:05)
[2021-10-02] MEDS: Cholecalciferol 1,000 UNITS (25 MCG) TAB PO SCH (08:05)
[2021-10-02] MEDS: Docusate Sodium 100 MG/10 ML UDCUP PO SCH ×2 (08:06→20:00)
[2021-10-02] MEDS: Ascorbic Acid 500 mg Chewable Tablet PO SCH (08:06)
[2021-10-02] MEDS: Loratadine 10 MG TAB PO SCH (08:06)
[2021-10-02 15:45] LABS: SARS-CoV-2 PCR by NAA Not Detected (NotDetected)
[2021-10-02] MEDS: Digoxin 0.125 MG TAB PO SCH (17:26)
[2021-10-02] MEDS: Finasteride 5 MG TAB PO SCH (20:00)
[2021-10-03] MEDS: Levothyroxine Sodium 75 MCG TAB PO SCH (05:41)
[2021-10-03] MEDS: Ascorbic Acid 500 mg Chewable Tablet PO SCH (08:11)
[2021-10-03] MEDS: Apixaban 2.5 MG TAB PO SCH ×2 (08:11→20:30)
[2021-10-03] MEDS: Sodium Chloride 1 GM TAB PO SCH (08:11)
[2021-10-03] MEDS: Docusate Sodium 100 MG/10 ML UDCUP PO SCH ×2 (08:12→20:30)
[2021-10-03] MEDS: Cholecalciferol 1,000 UNITS (25 MCG) TAB PO SCH (08:12)
[2021-10-03] MEDS: Famotidine 20 MG TAB PO SCH (08:12)
[2021-10-03] MEDS: Loratadine 10 MG TAB PO SCH (08:12)
[2021-10-03] MEDS: Digoxin 0.125 MG TAB PO SCH (17:08)
[2021-10-03] MEDS: Finasteride 5 MG TAB PO SCH (20:30)
[2021-10-04] MEDS: Levothyroxine Sodium 75 MCG TAB PO SCH (05:43)
[2021-10-04 06:02] LABS: Hemoglobin 11.1 g/dL (14.0-18.0); Mean Corpuscular HGB CONC 29.7 g/dL (32.0-36.0); Mean Corpuscular Hemoglobin 26.5 pg (27.0-31.0); Mean Corpuscular Volume 89.2 fL (78.0-98.0); Red Blood Cell (RBC) Count 4.18 mill/uL (4.70-6.10); White Blood Cell (WBC) Count 18.1 thou/uL (4.8-10.8)
[2021-10-04 06:03] LABS: #Basophils 0.3 thou/uL (0.0-0.2); #Eosinphils 0.8 thou/uL (0.0-0.7); #Lymphocytes 1.4 thou/uL (1.20-3.40); #Monocytes 0.8 thou/uL (0.11-0.59); #Neutrophils 14.9 thou/uL (1.40-6.50); %Basophils 1.9 % (0.0-1.0); %Eosinophils 4.3 % (0.0-10.0); %Lymphocytes 7.5 % (21.0-51.0); %Monocytes 4.2 % (0.0-10.0); %Neutrophils 82.1 % (42.0-75.0); Manual Diff?? NO; Mean Platelet Volume 8.2 fL (7.4-10.4); Platelet Count 101 thou/uL (130-400); RBC Distribution Width 18.8 % (11.5-14.5)
[2021-10-04 06:31] LABS: Anion Gap 12 mmol/L (10-20); BUN (Urea Nitrogen) 11 mg/dL (8.4-25.7); Calc. Creatinine Clearance 64 mL/min (70-130); Calcium 9.7 mg/dL (7.8-10.44); Carbon Dioxide 27 mmol/L (23-31); Chloride 99 mmol/L (98-107); Glucose 90 mg/dL (83-110); Potassium 3.9 mmol/L (3.5-5.1)
[2021-10-04 06:34] LABS: Sodium 134 mmol/L (136-145)
[2021-10-04] MEDS ORDERED: Loratadine 10 MG TAB PO PRN (08:07)
[2021-10-04] MEDS: Ascorbic Acid 500 mg Chewable Tablet PO SCH (08:32)
[2021-10-04] MEDS: Cholecalciferol 1,000 UNITS (25 MCG) TAB PO SCH (08:32)
[2021-10-04] MEDS: Docusate Sodium 100 MG/10 ML UDCUP PO SCH ×2 (08:32→21:08)
[2021-10-04] MEDS: Sodium Chloride 1 GM TAB PO SCH (08:32)
[2021-10-04] MEDS: Apixaban 2.5 MG TAB PO SCH ×2 (08:32→21:08)
[2021-10-04] MEDS: Famotidine 20 MG TAB PO SCH (08:33)
[2021-10-04] MEDS: Digoxin 0.125 MG TAB PO SCH (17:46)
[2021-10-04] MEDS: Finasteride 5 MG TAB PO SCH (21:08)
[2021-10-05] MEDS: Levothyroxine Sodium 75 MCG TAB PO SCH (05:35)
[2021-10-05] MEDS: Docusate Sodium 100 MG/10 ML UDCUP PO SCH ×2 (08:52→20:37)
[2021-10-05] MEDS: Ascorbic Acid 500 mg Chewable Tablet PO SCH (08:54)
[2021-10-05] MEDS: Apixaban 2.5 MG TAB PO SCH ×2 (08:54→20:37)
[2021-10-05] MEDS: Sodium Chloride 1 GM TAB PO SCH (08:54)
[2021-10-05] MEDS: Famotidine 20 MG TAB PO SCH (08:54)
[2021-10-05] MEDS: Cholecalciferol 1,000 UNITS (25 MCG) TAB PO SCH (08:54)
[2021-10-05] MEDS: Digoxin 0.125 MG TAB PO SCH (16:49)
[2021-10-05] MEDS: Finasteride 5 MG TAB PO SCH (20:37)
[2021-10-06] MEDS: Levothyroxine Sodium 75 MCG TAB PO SCH (05:58)
[2021-10-06 06:37] LABS: Anion Gap 13 mmol/L (10-20); BUN (Urea Nitrogen) 9 mg/dL (8.4-25.7); Calc. Creatinine Clearance 70 mL/min (70-130); Calcium 9.6 mg/dL (7.8-10.44); Carbon Dioxide 26 mmol/L (23-31); Chloride 101 mmol/L (98-107); Glucose 88 mg/dL (83-110); Potassium 3.9 mmol/L (3.5-5.1); Sodium 136 mmol/L (136-145)
[2021-10-06 06:44] LABS: #Lymphocytes 1.6 thou/uL (1.20-3.40); #Monocytes 0.8 thou/uL (0.11-0.59); #Neutrophils 14.1 thou/uL (1.40-6.50); %Basophils 2.5 % (0.0-1.0); %Eosinophils 4.9 % (0.0-10.0); %Monocytes 4.3 % (0.0-10.0); %Neutrophils 79.2 % (42.0-75.0); Manual Diff?? NO; Mean Corpuscular HGB CONC 30.2 g/dL (32.0-36.0); Mean Corpuscular Hemoglobin 26.5 pg (27.0-31.0); Mean Corpuscular Volume 87.9 fL (78.0-98.0); Mean Platelet Volume 7.5 fL (7.4-10.4); Platelet Count 109 thou/uL (130-400); RBC Distribution Width 19.1 % (11.5-14.5); Red Blood Cell (RBC) Count 4.15 mill/uL (4.70-6.10); White Blood Cell (WBC) Count 17.8 thou/uL (4.8-10.8)
[2021-10-06 06:45] LABS: #Basophils 0.4 thou/uL (0.0-0.2); #Eosinphils 0.9 thou/uL (0.0-0.7)
[2021-10-06] MEDS: Cholecalciferol 1,000 UNITS (25 MCG) TAB PO SCH (08:08)
[2021-10-06] MEDS: Famotidine 20 MG TAB PO SCH (08:08)
[2021-10-06] MEDS: Sodium Chloride 1 GM TAB PO SCH (08:08)
[2021-10-06] MEDS: Apixaban 2.5 MG TAB PO SCH ×2 (08:09→20:15)
[2021-10-06] MEDS: Ascorbic Acid 500 mg Chewable Tablet PO SCH (08:09)
[2021-10-06] MEDS: Docusate Sodium 100 MG/10 ML UDCUP PO SCH ×2 (08:12→20:15)
[2021-10-06] MEDS: Digoxin 0.125 MG TAB PO SCH (17:27)
[2021-10-06] MEDS: Finasteride 5 MG TAB PO SCH (20:15)
[2021-10-07] MEDS: Levothyroxine Sodium 75 MCG TAB PO SCH (05:38)
[2021-10-07] MEDS: Docusate Sodium 100 MG/10 ML UDCUP PO SCH ×2 (08:33→20:54)
[2021-10-07] MEDS: Famotidine 20 MG TAB PO SCH (08:34)
[2021-10-07] MEDS: Ascorbic Acid 500 mg Chewable Tablet PO SCH (08:34)
[2021-10-07] MEDS: Apixaban 2.5 MG TAB PO SCH ×2 (08:35→20:55)
[2021-10-07] MEDS: Sodium Chloride 1 GM TAB PO SCH (08:35)
[2021-10-07] MEDS: Cholecalciferol 1,000 UNITS (25 MCG) TAB PO SCH (08:35)
[2021-10-07] MEDS: Digoxin 0.125 MG TAB PO SCH (16:45)
[2021-10-07] MEDS: Finasteride 5 MG TAB PO SCH (20:55)
[2021-10-08] MEDS: Levothyroxine Sodium 75 MCG TAB PO SCH (06:30)
[2021-10-08] MEDS: Docusate Sodium 100 MG/10 ML UDCUP PO SCH ×2 (08:12→21:16)
[2021-10-08] MEDS: Famotidine 20 MG TAB PO SCH (08:13)
[2021-10-08] MEDS: Ascorbic Acid 500 mg Chewable Tablet PO SCH (08:13)
[2021-10-08] MEDS: Cholecalciferol 1,000 UNITS (25 MCG) TAB PO SCH (08:13)
[2021-10-08] MEDS: Senokot S 8.6-50 MG TAB PO PRN (08:13)
[2021-10-08] MEDS: Sodium Chloride 1 GM TAB PO SCH (08:13)
[2021-10-08] MEDS: Apixaban 2.5 MG TAB PO SCH ×2 (08:13→21:16)
[2021-10-08] MEDS: Digoxin 0.125 MG TAB PO SCH (17:02)
[2021-10-08] MEDS: Finasteride 5 MG TAB PO SCH (21:16)
[2021-10-08 22:31] LABS: SARS-CoV-2 PCR by NAA Not Detected (NotDetected)
[2021-10-09 06:20] LABS: Hemoglobin 11.1 g/dL (14.0-18.0); Platelet Count 105 thou/uL (130-400)
[2021-10-09] MEDS: Levothyroxine Sodium 75 MCG TAB PO SCH (06:23)
[2021-10-09 06:26] LABS: Calc. Creatinine Clearance 65 mL/min (70-130)
[2021-10-09] MEDS: Docusate Sodium 100 MG/10 ML UDCUP PO SCH ×2 (09:19→20:53)
[2021-10-09] MEDS: Sodium Chloride 1 GM TAB PO SCH (09:20)
[2021-10-09] MEDS: Ascorbic Acid 500 mg Chewable Tablet PO SCH (09:20)
[2021-10-09] MEDS: Cholecalciferol 1,000 UNITS (25 MCG) TAB PO SCH (09:21)
[2021-10-09] MEDS: Famotidine 20 MG TAB PO SCH (09:21)
[2021-10-09] MEDS: Apixaban 2.5 MG TAB PO SCH ×2 (09:21→20:53)
[2021-10-09] MEDS: Bisacodyl 5 MG TAB PO PRN (17:44)
[2021-10-09] MEDS: Digoxin 0.125 MG TAB PO SCH (17:44)
[2021-10-09] MEDS: Finasteride 5 MG TAB PO SCH (20:53)
[2021-10-10] MEDS: Levothyroxine Sodium 75 MCG TAB PO SCH (05:44)
[2021-10-10] MEDS: Sodium Chloride 1 GM TAB PO SCH (08:17)
[2021-10-10] MEDS: Cholecalciferol 1,000 UNITS (25 MCG) TAB PO SCH (08:17)
[2021-10-10] MEDS: Famotidine 20 MG TAB PO SCH (08:17)
[2021-10-10] MEDS: Ascorbic Acid 500 mg Chewable Tablet PO SCH (08:17)
[2021-10-10] MEDS: Apixaban 2.5 MG TAB PO SCH ×2 (08:17→20:40)
[2021-10-10] MEDS: Docusate Sodium 100 MG/10 ML UDCUP PO SCH ×2 (08:20→20:40)
[2021-10-10] MEDS: Bisacodyl 10 MG SUPP PR PRN (09:56)
[2021-10-10] MEDS: Digoxin 0.125 MG TAB PO SCH (17:22)
[2021-10-10] MEDS: Finasteride 5 MG TAB PO SCH (20:40)
[2021-10-11] MEDS: Levothyroxine Sodium 75 MCG TAB PO SCH (05:32)
[2021-10-11] MEDS: Cholecalciferol 1,000 UNITS (25 MCG) TAB PO SCH (07:27)
[2021-10-11] MEDS: Famotidine 20 MG TAB PO SCH (07:28)
[2021-10-11] MEDS: Sodium Chloride 1 GM TAB PO SCH (07:28)
[2021-10-11] MEDS: Ascorbic Acid 500 mg Chewable Tablet PO SCH (07:28)
[2021-10-11] MEDS: Apixaban 2.5 MG TAB PO SCH ×2 (07:28→20:28)
[2021-10-11] MEDS: Docusate Sodium 100 MG/10 ML UDCUP PO SCH ×2 (07:29→20:28)
[2021-10-11] MEDS: Digoxin 0.125 MG TAB PO SCH (16:21)
[2021-10-11] MEDS: Finasteride 5 MG TAB PO SCH (20:28)
[2021-10-12] MEDS: Levothyroxine Sodium 75 MCG TAB PO SCH (05:22)
[2021-10-12] MEDS: Cholecalciferol 1,000 UNITS (25 MCG) TAB PO SCH (08:14)
[2021-10-12] MEDS: Ascorbic Acid 500 mg Chewable Tablet PO SCH (08:14)
[2021-10-12] MEDS: Sodium Chloride 1 GM TAB PO SCH (08:15)
[2021-10-12] MEDS: Famotidine 20 MG TAB PO SCH (08:15)
[2021-10-12] MEDS: Docusate Sodium 100 MG/10 ML UDCUP PO SCH ×2 (08:15→20:43)
[2021-10-12] MEDS: Apixaban 2.5 MG TAB PO SCH ×2 (08:15→20:42)
[2021-10-12] MEDS: Digoxin 0.125 MG TAB PO SCH (17:29)
[2021-10-12] MEDS: Finasteride 5 MG TAB PO SCH (20:42)
[2021-10-13] MEDS: Levothyroxine Sodium 75 MCG TAB PO SCH (05:13)
[2021-10-13] MEDS: Sodium Chloride 1 GM TAB PO SCH (09:13)
[2021-10-13] MEDS: Cholecalciferol 1,000 UNITS (25 MCG) TAB PO SCH (09:13)
[2021-10-13] MEDS: Docusate Sodium 100 MG/10 ML UDCUP PO SCH ×2 (09:14→20:43)
[2021-10-13] MEDS: Famotidine 20 MG TAB PO SCH (09:14)
[2021-10-13] MEDS: Apixaban 2.5 MG TAB PO SCH ×2 (09:14→20:43)
[2021-10-13] MEDS: Ascorbic Acid 500 mg Chewable Tablet PO SCH (09:14)
[2021-10-13] MEDS: Digoxin 0.125 MG TAB PO SCH (17:22)
[2021-10-13] MEDS: Finasteride 5 MG TAB PO SCH (20:43)
[2021-10-14] MEDS: Levothyroxine Sodium 75 MCG TAB PO SCH (06:08)
[2021-10-14] MEDS: Cholecalciferol 1,000 UNITS (25 MCG) TAB PO SCH (09:25)
[2021-10-14] MEDS: Ascorbic Acid 500 mg Chewable Tablet PO SCH (09:25)
[2021-10-14] MEDS: Famotidine 20 MG TAB PO SCH (09:25)
[2021-10-14] MEDS: Apixaban 2.5 MG TAB PO SCH ×2 (09:25→19:59)
[2021-10-14] MEDS: Docusate Sodium 100 MG/10 ML UDCUP PO SCH ×2 (09:26→19:57)
[2021-10-14] MEDS: Sodium Chloride 1 GM TAB PO SCH (09:26)
[2021-10-14] MEDS: Digoxin 0.125 MG TAB PO SCH (17:13)
[2021-10-14] MEDS: Finasteride 5 MG TAB PO SCH (19:59)
[2021-10-15] MEDS: Levothyroxine Sodium 75 MCG TAB PO SCH (05:53)
[2021-10-15 06:14] VITALS: BMI 18.3
[2021-10-15] MEDS: Docusate Sodium 100 MG/10 ML UDCUP PO SCH ×2 (08:24→20:31)
[2021-10-15] MEDS: Ascorbic Acid 500 mg Chewable Tablet PO SCH (08:25)
[2021-10-15] MEDS: Apixaban 2.5 MG TAB PO SCH ×2 (08:25→20:32)
[2021-10-15] MEDS: Cholecalciferol 1,000 UNITS (25 MCG) TAB PO SCH (08:25)
[2021-10-15] MEDS: Sodium Chloride 1 GM TAB PO SCH (08:25)
[2021-10-15] MEDS: Famotidine 20 MG TAB PO SCH (08:25)
[2021-10-15] MEDS: Digoxin 0.125 MG TAB PO SCH (17:46)
[2021-10-15 18:53] LABS: SARS-CoV-2 PCR by NAA Not Detected (NotDetected)
[2021-10-15] MEDS: Finasteride 5 MG TAB PO SCH (20:32)
[2021-10-16] MEDS: Levothyroxine Sodium 75 MCG TAB PO SCH (06:01)
[2021-10-16 06:33] LABS: Calc. Creatinine Clearance 73 mL/min (70-130)
[2021-10-16 07:03] LABS: Platelet Count 107 thou/uL (130-400)
[2021-10-16] MEDS: Ascorbic Acid 500 mg Chewable Tablet PO SCH (08:03)
[2021-10-16] MEDS: Apixaban 2.5 MG TAB PO SCH (08:03)
[2021-10-16] MEDS: Docusate Sodium 100 MG/10 ML UDCUP PO SCH (08:03)
[2021-10-16] MEDS: Sodium Chloride 1 GM TAB PO SCH (08:03)
[2021-10-16] MEDS: Famotidine 20 MG TAB PO SCH (08:03)
[2021-10-16] MEDS: Cholecalciferol 1,000 UNITS (25 MCG) TAB PO SCH (08:09)
[2021-10-16 12:58] VITALS: BP 112/54; TEMP 97
== END 2021-10-16 15:00 | disposition home health service (06) | DRG 560 ==
LOC: OBSVTOIN 21:22 → NAV ACUTE 21:22
PROVIDERS: ADMIT Family Medicine; ATTEND Family Medicine
DX: S22.089D Unspecified fracture of T11-T12 vertebra, subsequent encounter for fracture with routine healing (principal); I48.11 Longstanding persistent atrial fibrillation; E87.1 Hypo-osmolality and hyponatremia; S32.049D Unspecified fracture of fourth lumbar vertebra, subsequent encounter for fracture with routine healing; W19.XXXD Unspecified fall, subsequent encounter; I48.91 Unspecified atrial fibrillation; E03.9 Hypothyroidism, unspecified; N40.0 Benign prostatic hyperplasia without lower urinary tract symptoms; Z96.641 Presence of right artificial hip joint; R47.81 Slurred speech; D69.2 Other nonthrombocytopenic purpura; K21.9 Gastro-esophageal reflux disease without esophagitis; D45 Polycythemia vera; D72.829 Elevated white blood cell count, unspecified; R16.1 Splenomegaly, not elsewhere classified; R53.81 Other malaise; D69.6 Thrombocytopenia, unspecified; G20 Parkinson's disease; Z20.822 Contact with and (suspected) exposure to COVID-19; Z88.0 Allergy status to penicillin; Z91.040 Latex allergy status; Z88.8 Allergy status to other drugs, medicaments and biological substances; Z79.01 Long term (current) use of anticoagulants; Z79.899 Other long term (current) drug therapy
CPT/HCPCS: 36415; 72072; 72100; 80048; 80053; 80061; 80162; 82533; 82565; 83935; 84300; 84439; 84443; 84480; 85014; 85018; 85025; 85049; U0002; U0003; U0005

== ENCOUNTER 2022-12-06 13:01 | Outpatient (CLI) | payer MEDICARE ==
[2022-12-06 13:23] LABS: Anion Gap 14 mmol/L (10-20); BUN (Urea Nitrogen) 19 mg/dL (8.4-25.7); Calc. Creatinine Clearance 0 mL/min (70-130); Calcium 9.7 mg/dL (7.8-10.44); Carbon Dioxide 24 mmol/L (23-31); Chloride 100 mmol/L (98-107); Estimated GFR 97; Glucose 72 mg/dL (83-110); Potassium 4.4 mmol/L (3.5-5.1); Sodium 134 mmol/L (136-145)
[2022-12-06 14:27] LABS: Follow-up Chemistry Comp? YES; Follow-up Result - Chemistry REPORT FAXED
== END 2022-12-06 13:02 | disposition home or self-care (01) ==
LOC: NAV LABSP 13:01
PROVIDERS: ATTEND Family Medicine
DX: E87.1 Hypo-osmolality and hyponatremia (principal)
CPT/HCPCS: 80048

== ENCOUNTER 2023-03-14 14:06 | Inpatient (IN) | payer MEDICARE ==
[2023-03-14] MEDS ORDERED: cloNIDine 0.1 MG TAB PO PRN (17:56)
[2023-03-14] MEDS ORDERED: Bisacodyl 5 MG TAB PO PRN (17:56)
[2023-03-14] MEDS ORDERED: Artificial Tear Sol 15 ML BOT EA EYE PRN (17:56)
[2023-03-14] MEDS ORDERED: Benzonatate 100 MG CAP PO PRN ×2 (17:56→18:01)
[2023-03-14] MEDS ORDERED: Sodium Chloride 0.65% Nasal 44 ML BOT EA NARE PRN (17:56)
[2023-03-14] MEDS ORDERED: Acetaminophen 325 MG TAB PO PRN (17:56)
[2023-03-14] MEDS ORDERED: Senokot S 8.6-50 MG TAB PO PRN (17:56)
[2023-03-14] MEDS ORDERED: Ondansetron ODT 4 MG TAB PO PRN (17:56)
[2023-03-14] MEDS ORDERED: Benzocaine/Menthol 1 LOZ LOZ PO PRN (17:56)
[2023-03-14] MEDS ORDERED: Acetaminophen 650 MG Suppository PR PRN (17:56)
[2023-03-14] MEDS ORDERED: Bisacodyl 10 MG SUPP PR PRN (17:56)
[2023-03-14] MEDS ORDERED: Calcium Carbonate 500 MG ChewTAB PO PRN (17:56)
[2023-03-14] MEDS ORDERED: Guaifenesin DM 100-10/5 ML UDCUP PO PRN (17:56)
[2023-03-14] MEDS ORDERED: Ipratropium Bromide 2.5 ml Neb NEB PRN (18:04)
[2023-03-14] MEDS ORDERED: Cefdinir 300 MG CAP PO SCH (21:45)
[2023-03-14] MEDS ORDERED: Famotidine 20 MG TAB PO SCH (21:45)
[2023-03-14] MEDS ORDERED: Finasteride 5 MG TAB PO SCH (21:45)
[2023-03-14] MEDS: Ipratropium Bromide 2.5 ml Neb NEB SCH (23:55)
[2023-03-15 00:56] VITALS: BMI 16.2
[2023-03-15] MEDS: Ipratropium Bromide 2.5 ml Neb NEB SCH ×3 (05:49→18:19)
[2023-03-15 05:51] LABS: Hematocrit 35.5 % (42.0-52.0); Hemoglobin 11.2 g/dL (14.0-18.0); Mean Corpuscular HGB CONC 31.5 g/dL (32.0-36.0); Mean Corpuscular Hemoglobin 24.3 pg (27.0-31.0); Mean Corpuscular Volume 77.2 fl (78.0-98.0); RBC Distribution Width 18.4 % (11.5-14.5); Red Blood Cell (RBC) Count 4.61 mill/uL (4.70-6.10); White Blood Cell (WBC) Count 17.7 10x3/uL (4.8-10.8)
[2023-03-15 05:54] LABS: #Basophils 1.2 thou/uL (0.0-0.2); #Eosinphils 0.6 thou/uL (0.0-0.7); #Lymphocytes 1.1 thou/uL (1.20-3.40); #Monocytes 0.9 thou/uL (0.11-0.59); #Neutrophils 13.9 thou/uL (1.40-6.50); %Basophils 6.6 % (0.0-1.0); %Eosinophils 3.1 % (0.0-10.0); %Lymphocytes 5.5 % (21.0-51.0); %Neutrophils 78.9 % (42.0-75.0); Manual Diff?? NO; Mean Platelet Volume 5.7 fL (7.4-10.4); Platelet Count 72 10x3/uL (130-400)
[2023-03-15] MEDS ORDERED: Levothyroxine Sodium 75 MCG TAB PO SCH (06:00)
[2023-03-15 06:05] LABS: Anion Gap 10 mmol/L (10-20); BUN (Urea Nitrogen) 12 mg/dL (8.4-25.7); Calc. Creatinine Clearance 68 mL/min (70-130); Calcium 9.4 mg/dL (7.8-10.44); Carbon Dioxide 25 mmol/L (23-31); Chloride 98 mmol/L (98-107); Estimated GFR 99; Glucose 94 mg/dL (83-110); Potassium 4.2 mmol/L (3.5-5.1); Sodium 129 mmol/L (136-145)
[2023-03-15] MEDS: Famotidine 20 MG TAB PO SCH ×2 (08:45→20:46)
[2023-03-15] MEDS ORDERED: Digoxin 0.125 MG TAB PO SCH ×2 (09:00→17:00)
[2023-03-15] MEDS ORDERED: Non-Formulary Item 1 EACH (Famotidine [Famotidine] 40 MG Tablet) PO SCH (09:00)
[2023-03-15] MEDS ORDERED: Bacitracin Zinc Ointment 30 gm TUBE TOP SCH (09:00)
[2023-03-15] MEDS ORDERED: FLU VACC QS2023(65UP)/MF59C/PF 60 MCG/0.5 ML SYRINGE IM ONE (09:00)
[2023-03-15] MEDS ORDERED: Cefdinir 300 MG CAP PO SCH (09:00)
[2023-03-15] MEDS ORDERED: Furosemide 20 MG/2 ML VIAL SLOW IVP SCH (14:30)
[2023-03-15] MEDS ORDERED: Cefepime 2 GM in Sodium Chloride 0.9% 100 ML IVPB SCH ×2 (15:00→16:00)
[2023-03-15 20:01] VITALS: BP 108/58; TEMP 96.5
[2023-03-15] MEDS ORDERED: Finasteride 5 MG TAB PO SCH (21:00)
[2023-03-16] MEDS ORDERED: Cefepime 1 GM in Sodium Chloride 0.9% 100 ML IVPB SCH (04:00)
[2023-03-16] MEDS ORDERED: Cefepime 2 GM in Sodium Chloride 0.9% 100 ML IVPB SCH (04:00)
== END 2023-03-15 22:30 | disposition short-term general hospital (02) | DRG 193 ==
LOC: NAV ACUTE 21:31
PROVIDERS: ADMIT Family Medicine; ATTEND Family Medicine
DX: J18.9 Pneumonia, unspecified organism (principal); J96.01 Acute respiratory failure with hypoxia; I48.91 Unspecified atrial fibrillation; N40.0 Benign prostatic hyperplasia without lower urinary tract symptoms; D45 Polycythemia vera; Z66 Do not resuscitate; D64.9 Anemia, unspecified; D69.6 Thrombocytopenia, unspecified; Z85.828 Personal history of other malignant neoplasm of skin
CPT/HCPCS: 36415; 71045; 80048; 85025; 94640; J0692; J1940; J3490